=== PATIENT | male | born 1960 | race African-American/Black ===

== ENCOUNTER 2019-03-16 06:25 | Observation (INO) ==
--- NOTE | 2019-03-16 06:37 | Emergency Department Note ---
Disposition Clinical Impression: Angina at rest Disposition: Admitted As Inpatient Time of Disposition: 07:19 General Adult HPI - General Stated complaint: chest pain Time Seen by Provider: 03/16/19 06:26 Source: patient, EMS Mode of arrival: ambulatory Limitations: no limitations Nursing Notes Reviewed: Yes Vital Signs Reviewed: Yes - History of Present Illness HPI Narrative: 58-year-old male with history of hypertension and diabetes presents with chest pain. [facility] She woke up with this morning around 5:30 with constant throbbing pain in left sided chest. No shortness of breath. Patient was given 3 baby aspirin and Nitrostat. Patient reported relief of pain in ED. Patient stated it was his first time having chest pain. No chills and fever. No nausea and vomiting. Onset (ago): hour(s) (1) Location: chest Radiation: non-radiation Pain Severity: moderate Quality: stabbing Consistency: intermittent - Related Data Home Medications Medication Instructions Recorded Confirmed Amlodipine Besylate 10 mg PO DAILY 03/16/19 03/16/19 Ammonium Lactate BID 03/16/19 Atorvastatin Calcium [Lipitor] 40 mg PO DAILY 03/16/19 03/16/19 BuPROPion 300 mg PO DAILY 03/16/19 03/16/19 Chlorthalidone 25 mg PO DAILY 03/16/19 03/16/19 Cholecalciferol (Vitamin D3) 1,000 unit PO DAILY 03/16/19 03/16/19 [Children's Vitamin D3] Docusate 100 mg PO BID 03/16/19 03/16/19 Loratadine [Allergy Relief] 10 mg PO DAILY 03/16/19 03/16/19 Melatonin 3 mg PO DAILY 03/16/19 03/16/19 Metformin HCl [Glucophage] 1,000 mg PO DAILY 03/16/19 03/16/19 Mirtazapine [Remeron] 30 mg PO DAILY 03/16/19 03/16/19 Potassium Chloride 10 meq PO BID 03/16/19 03/16/19 Terbinafine HCl 03/16/19 03/16/19 Allergies Allergy/AdvReac Type Severity Reaction Status Date / Time No Known Allergies Allergy Verified 03/16/19 06:32 Constitutional: Denies: fever, chills Eyes: Denies: eye pain ENT ED: Denies: ear pain Cardiovascular: Reports: chest pain Respiratory: Denies: cough Gastrointestinal: Denies: abdominal pain Genitourinary: Denies: urgency Musculoskeletal: Denies: back pain Integumentary: Denies: rash Neurological: Denies: headache Psychiatric: Denies: anxiety Endocrine: Denies: fatigue Hematological/Lymphatic: Denies: easy bleeding Allergic/Immunologic: Denies: facial swelling Physical Exam - General Limitations: no limitations General appearance: alert - Head Head exam: atraumatic - Eye Eye exam: Present: normal appearance - ENT ENT exam: normal exam - Neck Neck exam: Present: normal inspection - Chest Chest inspection: Present: normal inspection - Respiratory Respiratory exam: Present: normal lung sounds bilaterally. Absent: respiratory distress, wheezes - Cardiovascular Cardiovascular exam: Present: regular rate - Abdominal Exam Abdominal exam: Present: soft - Extremities Exam Extremities exam: Present: normal inspection, full ROM. Absent: tenderness - Back Exam Back exam: Present: normal inspection, full ROM. Absent: tenderness - Neurological Exam Neurological exam: Present: alert, oriented X3 - Psychiatric Psychiatric exam: Present: normal affect - Skin Skin exam: Present: warm, intact Course Vital Signs Temperature 98.5 F 03/16/19 06:32 Pulse Rate 60 03/16/19 06:32 Respiratory Rate 14 03/16/19 06:32 Blood Pressure 155/103 03/16/19 06:32 O2 Sat by Pulse Oximetry 98 03/16/19 06:32 Temperature 98.1 F 03/16/19 14:48 Pulse Rate 58 03/16/19 14:48 Respiratory Rate 16 03/16/19 14:48 Blood Pressure 190/98 03/16/19 14:48 O2 Sat by Pulse Oximetry 98 03/16/19 14:48 Oxygen Delivery Oxygen Delivery Room Air Medical Decision Making - [facility] Narrative Medical decision making narrative: 58-year-old male with history of hypertension and diabetes presents with first time chest pain. Pt stated it was intermittent throbbing pain in left side chest. No shortness of breath. Respond well to ASA and nitrite. Pt never had heart disease. No stress test in the past. Physical exam: unremarkable. EKG: no st-elevation. first dose troponin negative. pt's heart score is 4. Pt will be admit for Angina at rest. Pt is full code status. Dr. Miller has seen the patient and agrees the above plan. - Lab Data Lab results reviewed: Yes I reviewed the patient's lab results. Result diagrams: 03/16/19 06:46 03/16/19 06:46 Lab Results 03/16/19 03/16/19 03/16/19 Range/Units 06:46 06:46 06:46 WBC 6.8 (4.3-11.1) K/mcL RBC 5.25 (4.19-5.50) M/mcL Hgb 15.7 (12.9-16.9) g/dL Hct 44.8 (37.5-50.1) % MCV 85.3 (83.0-100.0) fL MCH 29.9 (28.0-33.3) pg MCHC 35.0 (31.6-35.5) g/dL RDW 12.7 (11.5-14.5) % Plt Count 257 (140-400) K/mcL MPV 8.7 L (9.4-12.4) fL Immature Gran % 0.3 (0-4) % Seg Neutrophils % 59.4 % Lymphocytes % 29.5 % Monocytes % 9.8 % Eosinophils % 0.7 % Basophils % 0.3 % Neutrophils # 4.0 (1.6-8.9) K/mcL Lymphocytes # 2.0 (0.6-4.6) K/mcL Monocytes # 0.7 (0.0-1.3) K/mcL Eosinophils # 0.1 (0.0-0.6) K/mcL Basophils # 0.0 (0.0-0.2) K/mcL PT 12.4 H (9.4-12.1) Seconds INR 1.1 APTT 33.6 (26.0-36.0) Seconds Sodium 135 L (136-145) mEq/L Potassium 3.1 L (3.5-5.1) mEq/L Chloride 99 (98-107) mEq/L Carbon Dioxide 26 (23-29) mEq/L BUN 17 (8-23) mg/dL Creatinine 1.20 (0.70-1.30) mg/dL Est GFR ( Amer) > 60 (> 60) Est GFR (Non-Af Amer) > 60 (> 60) BUN/Creatinine Ratio 14 (6-26) Glucose 125 H (70-105) mg/dL Est Mean Plasma Glucose mg/dl Hemoglobin A1c ( - 5.6) % Calculated Osmolality 283 (280-300) Calcium 9.7 (8.6-10.3) mg/dL Troponin I < 0.03 (< 0.04) ng/mL 03/16/19 Range/Units 06:46 WBC (4.3-11.1) K/mcL RBC (4.19-5.50) M/mcL Hgb (12.9-16.9) g/dL Hct (37.5-50.1) % MCV (83.0-100.0) fL MCH (28.0-33.3) pg MCHC (31.6-35.5) g/dL RDW (11.5-14.5) % Plt Count (140-400) K/mcL MPV (9.4-12.4) fL Immature Gran % (0-4) % Seg Neutrophils % % Lymphocytes % % Monocytes % % Eosinophils % % Basophils % % Neutrophils # (1.6-8.9) K/mcL Lymphocytes # (0.6-4.6) K/mcL Monocytes # (0.0-1.3) K/mcL Eosinophils # (0.0-0.6) K/mcL Basophils # (0.0-0.2) K/mcL PT (9.4-12.1) Seconds INR APTT (26.0-36.0) Seconds Sodium (136-145) mEq/L Potassium (3.5-5.1) mEq/L Chloride (98-107) mEq/L Carbon Dioxide (23-29) mEq/L BUN (8-23) mg/dL Creatinine (0.70-1.30) mg/dL Est GFR ( Amer) (> 60) Est GFR (Non-Af Amer) (> 60) BUN/Creatinine Ratio (6-26) Glucose (70-105) mg/dL Est Mean Plasma Glucose 126 mg/dl Hemoglobin A1c 6.0 H ( - 5.6) % Calculated Osmolality (280-300) Calcium (8.6-10.3) mg/dL Troponin I (< 0.04) ng/mL - Radiology Data Radiology results reviewed: Yes I reviewed the patient's radiology results. HISTORY: ORDERING SYSTEM PROVIDED HISTORY: chest pain Acute. Initial evaluation. FINDINGS: The cardiac silhouette and mediastinal contours are normal. The lungs are clear. No parenchymal lung infiltrate. No pleural effusion. The visualized osseous structures are unremarkable. XR/XR chest 1V portable IMPRESSION: 1. No acute cardiopulmonary disease. D/ / Nahun Lira MD / Nahun Lira MD Interpreting Provider: Nahun Lira MD
[2019-03-16 07:06] LABS: Basophils % 0.3 %; Eosinophils # 0.1 K/mcL (0.0-0.6); Eosinophils % 0.7 %; Hematocrit 44.8 % (37.5-50.1); Hemoglobin 15.7 g/dL (12.9-16.9); Immature Granulocytes % 0.3 % (0-4); Lymphocytes % 29.5 %; Mean Corpuscular Hemoglobin 29.9 pg (28.0-33.3); Mean Corpuscular Volume 85.3 fL (83.0-100.0); Mean Platelet Volume 8.7 fL (9.4-12.4); Monocytes # 0.7 K/mcL (0.0-1.3); Monocytes % 9.8 %; Platelet Count 257 K/mcL (140-400); Red Blood Count 5.25 M/mcL (4.19-5.50); Red Cell Distribution Width 12.7 % (11.5-14.5); Segmented Neutrophils % 59.4 %; White Blood Count 6.8 K/mcL (4.3-11.1)
[2019-03-16 07:13] LABS: INR 1.1; Prothrombin Time 12.4 Seconds (9.4-12.1)
[2019-03-16 07:16] LABS: Activated Partial Thrombo Time 33.6 Seconds (26.0-36.0)
[2019-03-16 07:24] LABS: BUN/Creatinine Ratio 14 (6-26); Blood Urea Nitrogen 17 mg/dL (8-23); Calcium 9.7 mg/dL (8.6-10.3); Carbon Dioxide 26 mEq/L (23-29); Chloride 99 mEq/L (98-107); Glucose 125 mg/dL (70-105); Osmolality,Calculated 283 (280-300); Potassium 3.1 mEq/L (3.5-5.1); Sodium 135 mEq/L (136-145); eGFR For African Americans > 60 (> 60); eGFR For Non-African Americans > 60 (> 60)
[2019-03-16 07:25] LABS: Troponin I < 0.03 ng/mL (< 0.04)
[2019-03-16] MEDS ORDERED: Nitroglycerin 0.4 MG TAB.SUBL SL PRN (07:59)
--- NOTE | 2019-03-16 08:08 | Emergency Department Note ---
Disposition Clinical Impression: Angina at rest Disposition: Admitted As Inpatient Referrals: NONE,PCP [Primary Care Provider] - Time of Disposition: 07:19 General Adult HPI - General Chief complaint: ED Chest Pain Stated complaint: chest pain Time Seen by Provider: 03/16/19 06:26 Source: patient, EMS Mode of arrival: ambulatory Limitations: no limitations - History of Present Illness Location: chest Pain Scale: 8 Quality: stabbing - Related Data Home Medications Medication Instructions Recorded Confirmed Ammonium Lactate BID 03/16/19 Allergies Allergy/AdvReac Type Severity Reaction Status Date / Time No Known Allergies Allergy Verified 03/16/19 06:32 Constitutional: Denies: fever, chills Eyes: Denies: eye pain ENT ED: Denies: ear pain Cardiovascular: Reports: chest pain Respiratory: Denies: cough Gastrointestinal: Denies: abdominal pain Genitourinary: Denies: urgency Musculoskeletal: Denies: back pain Integumentary: Denies: rash Neurological: Denies: headache Psychiatric: Denies: anxiety Endocrine: Denies: fatigue Hematological/Lymphatic: Denies: easy bleeding Allergic/Immunologic: Denies: facial swelling Past Medical History - Past Medical History Medical history: Reports: diabetes, hypertension Psychiatric history: Reports: depression - Social History Smoking Status: Current every day smoker Smokeless Tobacco Status: No Alcohol use: Reports: none Drug use: Reports: marijuana Physical Exam - General Limitations: no limitations General appearance: alert Course Vital Signs Temperature 98.5 F 03/16/19 06:32 Pulse Rate 60 03/16/19 06:32 Respiratory Rate 14 03/16/19 06:32 Blood Pressure 155/103 03/16/19 06:32 O2 Sat by Pulse Oximetry 98 03/16/19 06:32 Temperature 98.5 F 03/16/19 06:32 Pulse Rate 59 03/16/19 07:10 Respiratory Rate 20 03/16/19 07:10 Blood Pressure 150/102 03/16/19 07:10 O2 Sat by Pulse Oximetry 99 03/16/19 07:10 Oxygen Delivery Oxygen Delivery Room Air Medical Decision Making - Lab Data Result diagrams: 03/16/19 06:46 03/16/19 06:46 Lab Results 03/16/19 03/16/19 03/16/19 Range/Units 06:46 06:46 06:46 WBC 6.8 (4.3-11.1) K/mcL RBC 5.25 (4.19-5.50) M/mcL Hgb 15.7 (12.9-16.9) g/dL Hct 44.8 (37.5-50.1) % MCV 85.3 (83.0-100.0) fL MCH 29.9 (28.0-33.3) pg MCHC 35.0 (31.6-35.5) g/dL RDW 12.7 (11.5-14.5) % Plt Count 257 (140-400) K/mcL MPV 8.7 L (9.4-12.4) fL Immature Gran % 0.3 (0-4) % Seg Neutrophils % 59.4 % Lymphocytes % 29.5 % Monocytes % 9.8 % Eosinophils % 0.7 % Basophils % 0.3 % Neutrophils # 4.0 (1.6-8.9) K/mcL Lymphocytes # 2.0 (0.6-4.6) K/mcL Monocytes # 0.7 (0.0-1.3) K/mcL Eosinophils # 0.1 (0.0-0.6) K/mcL Basophils # 0.0 (0.0-0.2) K/mcL PT 12.4 H (9.4-12.1) Seconds INR 1.1 APTT 33.6 (26.0-36.0) Seconds Sodium 135 L (136-145) mEq/L Potassium 3.1 L (3.5-5.1) mEq/L Chloride 99 (98-107) mEq/L Carbon Dioxide 26 (23-29) mEq/L BUN 17 (8-23) mg/dL Creatinine 1.20 (0.70-1.30) mg/dL Est GFR ( Amer) > 60 (> 60) Est GFR (Non-Af Amer) > 60 (> 60) BUN/Creatinine Ratio 14 (6-26) Glucose 125 H (70-105) mg/dL Calculated Osmolality 283 (280-300) Calcium 9.7 (8.6-10.3) mg/dL Troponin I < 0.03 (< 0.04) ng/mL Attestation Statement - Attestation Attestation: For this encounter, I have reviewed the ENGINE PILOT or PA documentation, treatment plan, and medical decision making; and I have had face to face time with this patient. Patient pain free on arrival after administration of aspirin and nitroglycerin, pain starting to come back at the time of my evaluation. EKG repeated and per my interpretation is unchanged from initial tracing. First troponin negative. Patient accepted by the hospitalist for admission and further evaluation.
[2019-03-16] MEDS ORDERED: Naloxone 0.4 MG/ML INJ IVP PRN (09:15)
[2019-03-16] MEDS ORDERED: Ondansetron 4 MG/2 ML VIAL IVP PRN (09:15)
--- NOTE | 2019-03-16 11:44 | Internal Med History&Physical ---
Date of Encounter: 03/16/19 Time of Encounter: 07:00 Internal Medicine - H&P: HPI Chief complaint: CP History of present illness: 58-year-old male with history of hypertension and diabetes presents with chest pain That wake him up from sleep, the patient describes the pain as constant throbbing pain in the left side of his chest was no radiation no alleviating factors or aggravating factors. He denied diaphoresis, shortness of breath, orthopnea, or limitation, Dr. Deborah Dale nocturnal dyspnea, progressive worsening of lower extremity edema, the patient was treated with aspirin and nitroglycerin and reported that he is pain significantly improved, the patient was evaluated by the ER staff and achy EKGs shows no significant ST-T wave changes, his cardiac enzyme first set was within normal limit. Past Med Surg Social Fam HX - Past Medical History Medical history: diabetes, hypertension Psychiatric history: depression - Social History Smoking Status: Current every day smoker Smokeless Tobacco Status: No Alcohol use: none Drug use: marijuana Internal Medicine - H&P: Meds Amlodipine Besylate 10 mg PO DAILY 03/16/19 [History] Ammonium Lactate [Amlactin] 1 appl TP BID PRN 03/16/19 [History] Atorvastatin Calcium [Lipitor] 20 mg PO DAILY 03/16/19 [History] Bupropion HCl [Wellbutrin Xl] 300 mg PO DAILY 03/16/19 [History] Chlorthalidone 25 mg PO DAILY 03/16/19 [History] Cholecalciferol (Vitamin D3) [Children's Vitamin D3] 1,000 unit PO DAILY 03/16/19 [History] Diclofenac Sodium [Voltaren] 2 gm TP DAILY PRN MDD 16 gm daily 03/16/19 [History] Docusate [Colace] 100 mg PO BID PRN 03/16/19 [History] Loratadine [Allergy Relief] 10 mg PO DAILY 03/16/19 [History] Melatonin 3 mg PO HS 03/16/19 [History] Metformin HCl [Glucophage] 1,000 mg PO QAM 03/16/19 [History] Metformin HCl [Glucophage] 500 mg PO QPM 03/16/19 [History] Multivitamin [One Daily Multivitamin] 1 tab PO DAILY 03/16/19 [History] Potassium Chloride [K-Tab ER] 20 meq PO BID 03/16/19 [History] Terbinafine HCl [Lamisil At] 1 appl TP BID 03/16/19 [History] cloNIDine HCl [CloNIDine HCl] 0.2 mg PO BID PRN 03/16/19 [History] Aspirin Enteric Coated [Aspirin EC] 81 mg PO DAILY #30 tablet. 03/18/19 [Rx] Lisinopril [Zestril] 10 mg PO DAILY #30 tablet 03/18/19 [Rx] Allergy/AdvReac Type Severity Reaction Status Date / Time No Known Allergies Allergy Verified 03/16/19 06:32 All Systems PM: A 10-system review of systems was performed and is negative for pertinent findings except as documented above in the HPI. - Constitutional Vitals: Temp Pulse Resp BP Pulse Ox 97.8 F 59 17 159/100 98 03/16/19 10:10 03/16/19 10:10 03/16/19 10:10 03/16/19 10:10 03/16/19 10:10 General appearance: Present: A&O X 3 Exam: ` - Neck Neck exam general surgery: Present: supple, trachea midline. Absent: lymphadenopathy - Respiratory Respiratory exam: Present: CTAB. Absent: accessory muscle use, rales, rhonchi, wheezes - Cardiovascular Cardiovascular exam: Present: RRR, +S1, +S2. Absent: diastolic murmur, gallop, rubs, systolic murmur - GI/Abdominal GI/Abdominal exam: Present: normal bowel sounds, soft, no peritoneal signs. Absent: distended, tenderness - Extremities Exam Extremities exam: Present: warm, radial pulses palpable and symmetrical. Absent: calf tenderness, cyanotic, pedal edema Internal Med - H&P Results - Labs CBC & Chem 7: 03/17/19 11:41 03/17/19 11:41 Labs: Short CBC 03/16/19 Range/Units 06:46 WBC 6.8 (4.3-11.1) K/mcL Hgb 15.7 (12.9-16.9) g/dL Hct 44.8 (37.5-50.1) % Plt Count 257 (140-400) K/mcL Neutrophils # 4.0 (1.6-8.9) K/mcL BMP 03/16/19 06:46 Sodium 135 L Potassium 3.1 L Chloride 99 Carbon Dioxide 26 BUN 17 Creatinine 1.20 Glucose 125 H Calcium 9.7 Cardiac Enzymes 03/16/19 03/16/19 Range/Units 06:46 10:11 Troponin I < 0.03 < 0.03 (< 0.04) ng/mL - Impressions ITS Impressions Chest X-Ray 03/16/19 06:26 IMPRESSION: 1. No acute cardiopulmonary disease. D/ / Nahun Lira MD / Nahun Lira MD Interpreting Provider: Nahun Lira MD - Assessment and Plan (1) Angina at rest Status: Acute Assessment and plan: Chest pain r/o CAD DD *Muskuloskeletal CP - myofascial strain, costochondritis *GERD *Esophageal spasm *Pericarditis - unlikely *Pneumonia - no infiltrate on CXR PLAN: - cardiac enzymes x 2 q 8 hr - EKG now and in AM - ASA - O2 by NC to keep SpO2 greater than 92% - UA - CBCD, BMP in AM - Fasting lipids - Morphine 2 mg IV q 2-4 hr PRN chest pain - Tylenol 650 mg PO q 4-6 hr PRN headache - 2D Echo - (2) Diabetes Status: Acute Assessment and plan: We will start the patient and insulin sliding scale with coverage, and obtain hemoglobin A1c Qualifiers: Diabetes mellitus type: type 2 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
[2019-03-16] MEDS ORDERED: *HR* Dextrose 50 % in Water (Vial) 50 ML VIAL IVP PRN (13:02)
[2019-03-16] MEDS ORDERED: D5% in Water 1,000 ML IVC PRN (13:02)
[2019-03-16] MEDS ORDERED: Dextrose Gel 15 GM/37.5 ML TUBE PO PRN ×2 (13:02)
[2019-03-16 13:53] LABS: Estimated Average Glucose 126 mg/dl
--- NOTE | 2019-03-16 16:58 | Electrocardiograph Report ---
[place] [id number] Test Date: 2019-03-16 Pat Name: Babak Simms Department: EXAM23 Room: 3B14 Gender: M Last Inserter: : 1960 Requested By: Pinky Ace Order Number: [id number] Reading MD: Eren Hughes Measurements Intervals [place] Rate: 59 P: -23 [place]: 185 QRS: 38 QRSD: 115 T: 71 QT: 470 QTc: 466 Interpretive Statements Sinus rhythm Nonspecific intraventricular conduction delay Electronically Signed On 03-16-2019 16:56:33 EDT by Eren Hughes
--- NOTE | 2019-03-16 16:58 | Electrocardiograph Report ---
[place] [id number] Test Date: 2019-03-16 Pat Name: Babak Simms Department: EXAM23 Room: 3B14 Gender: M Medical Associate: : 1960 Requested By: Eddie Silva Order Number: [id number] Reading MD: Eren Hughes Measurements Intervals [place] Rate: 56 P: 45 IN: 183 QRS: 45 QRSD: 109 T: 96 QT: 451 QTc: 436 Interpretive Statements Sinus rhythm Abnormal R-wave progression, early transition Nonspecific T abnormalities, lateral leads Electronically Signed On 03-16-2019 16:57:04 EDT by Eren Hughes
[2019-03-16] MEDS ORDERED: Diclofenac Sodium [Voltaren] GEL TP PRN (18:04)
[2019-03-16] MEDS: cloNIDine HCl 0.1 MG TABLET PO PRN (18:48)
[2019-03-16] MEDS: Insulin LISPRO 300 UNITS/3 ML VIAL SQ SCH ×2 (18:49→20:57)
[2019-03-16] MEDS: Clotrimazole 1% CRM 15 GM TUBE TP SCH (20:13)
[2019-03-16] MEDS: Ammonium Lactate 30 APPL/225 GM BOTTLE TP PRN (20:16)
[2019-03-16] MEDS ORDERED: Perflutren Lipid Microsphere 1.3 ML in 0.9 % Sodium Chloride 8.7 ML IVP ONE (21:16)
[2019-03-16] MEDS: Melatonin 3 MG TABLET PO SCH (22:08)
[2019-03-16] MEDS: Mirtazapine 15 MG TABLET PO SCH (22:08)
[2019-03-16 23:27] LABS: BUN/Creatinine Ratio 13 (6-26); Blood Urea Nitrogen 15 mg/dL (8-23); Calcium 9.2 mg/dL (8.6-10.3); Carbon Dioxide 27 mEq/L (23-29); Chloride 101 mEq/L (98-107); Glucose 116 mg/dL (70-105); Osmolality,Calculated 286 (280-300); Potassium 3.2 mEq/L (3.5-5.1); Sodium 137 mEq/L (136-145); eGFR For African Americans > 60 (> 60); eGFR For Non-African Americans > 60 (> 60)
[2019-03-17] MEDS ORDERED: Regadenoson 0.4 MG/5 ML SYRINGE IVP ONE (06:54)
[2019-03-17] MEDS: Insulin LISPRO 300 UNITS/3 ML VIAL SQ SCH ×4 (08:40→20:31)
[2019-03-17] MEDS: BuPROPion XL (24 HR) 150 MG TABLET PO SCH (08:45)
[2019-03-17] MEDS: Multivit/Ca/Min/Fe/FA 1 TAB TABLET PO SCH (08:45)
[2019-03-17] MEDS: Cholecalciferol (D-3) 1,000 UNIT TABLET PO SCH (08:45)
[2019-03-17] MEDS: amLODIPine 5 MG TABLET PO SCH (08:45)
[2019-03-17] MEDS: Loratadine 10 MG TABLET PO SCH (08:45)
[2019-03-17] MEDS: Clotrimazole 1% CRM 15 GM TUBE TP SCH ×2 (08:51→20:33)
[2019-03-17] MEDS ORDERED: Mirtazapine 15 MG TABLET PO SCH (09:00)
[2019-03-17] MEDS ORDERED: Aspirin 325 MG TABLET PO SCH (09:00)
--- NOTE | 2019-03-17 11:48 | Cardiology Consult Note ---
Date of Encounter: 03/17/19 Time of Encounter: 11:46 Assessment and Plan (1) Unstable angina Current Visit: Yes Status: Acute Unstable angina with abnormal stress test/new onset cardiomyopathy. Risks benefits and alternatives of a LHC were discussed with the patient and he agrees to proceed Discussion w patient/family: The assessment and plan as outlined above was discussed with the patient and/or family members who expressed understanding and agreement. All questions were answered. Thank you for involving us in the care of your patient. Please call with any questions. History of Present Illness Consult date: 03/17/19 Consult reason: Unstable angina Chief complaint: Chest pain History of present illness: Mr. Simms is a 58 year old male with multiple cardiac risk factors including diabetes, hypertension, hyperlipidemia presents with chest pain. Patient describes chest pain started approximately 3 days ago and has been ongoing with increased frequency and duration of chest pain. EKG shows nonspecific changes and stress of shows mild inferior ischemia with a low ejection fraction of 35%. Risks benefits and alternatives of and LHC were discussed patient and he agrees to proceed. Past Med Surg Social Fam HX - Past Medical History Medical history: diabetes, hypertension Psychiatric history: depression - Social History Smoking Status: Current every day smoker Smokeless Tobacco Status: No Alcohol use: none Drug use: marijuana Medications and Allergies Amlodipine Besylate 10 mg PO DAILY 03/16/19 [History] Ammonium Lactate [Amlactin] 1 appl TP BID PRN 03/16/19 [History] Atorvastatin Calcium [Lipitor] 20 mg PO DAILY 03/16/19 [History] Bupropion HCl [Wellbutrin Xl] 300 mg PO DAILY 03/16/19 [History] Chlorthalidone 25 mg PO DAILY 03/16/19 [History] Cholecalciferol (Vitamin D3) [Children's Vitamin D3] 1,000 unit PO DAILY 03/16/19 [History] Diclofenac Sodium [Voltaren] 2 gm TP DAILY PRN MDD 16 gm daily 03/16/19 [History] Docusate [Colace] 100 mg PO BID PRN 03/16/19 [History] Loratadine [Allergy Relief] 10 mg PO DAILY 03/16/19 [History] Melatonin 3 mg PO HS 03/16/19 [History] Metformin HCl [Glucophage] 1,000 mg PO QAM 03/16/19 [History] Metformin HCl [Glucophage] 500 mg PO QPM 03/16/19 [History] Multivitamin [One Daily Multivitamin] 1 tab PO DAILY 03/16/19 [History] Potassium Chloride [K-Tab ER] 20 meq PO BID 03/16/19 [History] Terbinafine HCl [Lamisil At] 1 appl TP BID 03/16/19 [History] cloNIDine HCl [CloNIDine HCl] 0.2 mg PO BID PRN 03/16/19 [History] Allergy/AdvReac Type Severity Reaction Status Date / Time No Known Allergies Allergy Verified 03/16/19 06:32 All Systems Review: The remainder of the systems were reviewed and are negative Physical Examination Vital Signs, Last 4 Hours Temp Pulse Resp BP Pulse Ox 03/17/19 08:37 98.1 F 56 18 158/95 94 General: Conversant, No Apparent Distress HEENT: Atraumatic, Normocephaly, Mucus Membranes Moist Neck: No JVD, Normal carotid pulses Cardiac: Reg Rate and Rhythm, Normal S1 and S2, No Murmur Lungs: Normal Breath Sounds, No Wheeze, Rales, Rhonchi Neuro: Alert and responsive, No focal deficits noted Abdomen: Soft, Non-Tender Skin: No rashes noted on visualized skin Musculoskeletal: No Chest Wall Tenderness Extremities: No Clubbing, No Cyanosis, No Edema, Normal Pulses Results 03/16/19 06:46 03/16/19 21:42 Lab Results 03/16/19 03/16/19 03/16/19 15:52 21:42 21:42 Sodium 137 Potassium 3.2 L Chloride 101 Carbon Dioxide 27 BUN 15 Creatinine 1.16 Glucose 116 H Calcium 9.2 Troponin I < 0.03 < 0.03 Consult Discharge Plan - Plan [facility]errals: [facility] [Non-Partnered Physician] - 04/06/19 1:30 pm
[2019-03-17 11:56] LABS: Basophils % 0.4 %; Eosinophils % 0.4 %; Hematocrit 44.6 % (37.5-50.1); Hemoglobin 15.4 g/dL (12.9-16.9); Immature Granulocytes % 0.3 % (0-4); Lymphocytes # 1.5 K/mcL (0.6-4.6); Lymphocytes % 20.4 %; Mean Corpuscular HGB Conc 34.5 g/dL (31.6-35.5); Mean Corpuscular Hemoglobin 30.2 pg (28.0-33.3); Mean Corpuscular Volume 87.5 fL (83.0-100.0); Mean Platelet Volume 9.1 fL (9.4-12.4); Monocytes # 0.7 K/mcL (0.0-1.3); Monocytes % 9.3 %; Neutrophils # 5.1 K/mcL (1.6-8.9); Platelet Count 221 K/mcL (140-400); Red Cell Distribution Width 12.8 % (11.5-14.5); Segmented Neutrophils % 69.2 %; White Blood Count 7.4 K/mcL (4.3-11.1)
--- NOTE | 2019-03-17 11:58 | Internal Med Progress Note ---
Hospitalist Progress Note - Encounter Date of Encounter: 03/17/19 Time of Encounter: 11:55 - Subjective Interval History: Mr. Simms is a 58-year-old male with history of hypertension, HLD, diabetes and chronic tobacco dependence pt presented to ER with chest pain. He described the pain as constant throbbing pain in the left side of his chest was no radiation no alleviating factors or aggravating factors. He denied diaphoresis, shortness of breath, orthopnea, or limitation. In the ER the patient was treated with aspirin and nitroglycerin and reported that he is pain significantly improved. He was admitted in the hospital and placed him on pvc monitor. His his serial troponin came back as negative. Patient is still complaining about chest pain 5 out of 10 at resting. He did go for nuclear stress test which came back as abnormal. - Exam Vitals: Temp Pulse Resp BP Pulse Ox 98.1 F 56 18 158/95 94 03/17/19 08:37 03/17/19 08:37 03/17/19 08:37 03/17/19 08:37 03/17/19 08:37 Exam: Gen: Alert, awake, Oriented to time,place and person Chest: Diminished breath sounds B/L, No wheezing, No crackles, No rales Heart: S1S2+ RRR No murmurs Abd: Soft, NT, BS +, No organomegaly Ext: No edema, pulses are palpable, No calf tenderness Neuro : No acute focal neuro deficits noticed Skin: No rash. - Assessment and Plan (1) Unstable angina Current Visit: Yes Status: Acute Assessment and Plan: His CP seems to be typical angina equivalent his his serial troponin were negative His stress test came back as abnormal with Small sized, mild intensity, reversible inferior perfusion defect possibly due to ischemia His LVEF @ 36 % Cont ASA, Lipitor If HR allows will consider adding BB 2 D Echo ordered Card consulted Possible LHC later today if his CP persists, will start him on Nitro gtt for now will give him Nitro SL PRN (2) Abnormal stress test Current Visit: Yes Status: Acute Assessment and Plan: as above (3) Cardiomyopathy Current Visit: Yes Status: Acute Assessment and Plan: Could be ischemic no previous Echo's to review ordered 2 D Echo (4) Diabetes Current Visit: Yes Status: Acute Assessment and Plan: ADA diet on ISS HbA1C 6.0 (5) Hypertension Current Visit: Yes Status: Acute Assessment and Plan: Fairly controlled with home medications started on IV hydralazine as needed (6) Tobacco dependence Current Visit: Yes Status: Acute Assessment and Plan: Counseled to quit smoking - Time Spent with Patient Total time spent is greater than 50% in coordination of care (as documented) at patient's floor/unit and/or counseling patient: Internal Medicine: Result - Labs CBC & Chem 7: 03/16/19 06:46 03/16/19 21:42 Labs: BMP 03/16/19 21:42 Sodium 137 Potassium 3.2 L Chloride 101 Carbon Dioxide 27 BUN 15 Creatinine 1.16 Glucose 116 H Calcium 9.2 Cardiac Enzymes 03/16/19 03/16/19 Range/Units 15:52 21:42 Troponin I < 0.03 < 0.03 (< 0.04) ng/mL - ABG Interpretation ABG results: PT/INR, D-dimer PT 12.4 Seconds (9.4-12.1) H 03/16/19 06:46 - Impressions Impressions Echocardiogram 03/16/19 18:22 Impressions: LVEF 45%. Normal LV chamber size, wall thickness. Mild global left ventricular systolic dysfunction. Mild left ventricular diastolic dysfunction. Normal right ventricular structure and function. No evidence of pulmonary hypertension. No significant valvular dysfunction. Left Ventricular Wall Motion: Rest Echo Findings The apex, apical inferior, mid inferior, basal inferior, apical anterior, mid anterior, basal anterior, apical septal, mid inferior septal, basal inferior septal, apical lateral, mid anterior lateral, basal anterior lateral, mid anterior septal, mid inferior lateral, basal anterior septal and basal inferior lateral hyde were hypokinetic. Findings: Study Quality * Technically adequate exam. ECG Findings * Sinus bradycardia. Left Ventricle * LVEF 45%. * Normal LV chamber size, wall thickness. * Mild global left ventricular systolic dysfunction. * Mild left ventricular diastolic dysfunction. Right Ventricle * Normal right ventricular structure and function. Left Atrium * Mildly dilated left atrium. Right Atrium * Mildly dilated right atrium. Interatrial Septum * Interatrial septum not well evaluated. Aortic Valve * Trileaflet aortic valve with normal function. * No aortic regurgitation. * No aortic stenosis. Mitral Valve * Normal mitral valve structure and function. * No mitral stenosis. * Trace mitral regurgitation. Tricuspid Valve * Normal tricuspid valve structure and function. * Trace tricuspid regurgitation. * No evidence of pulmonary hypertension. Pulmonic Valve * Normal pulmonic valve structure. * Mild pulmonic regurgitation. Aorta * Normally sized aortic root. Pericardium * The pericardium appears normal. IVC * Normal IVC dimensions and inspiratory collapse. Pulmonary Artery * Normal visualized portions of the main pulmonary artery. Consult Discharge Plan - Plan Referrals: HIRAL,PCP [Non-Partnered Physician] - 04/06/19 1:30 pm
[2019-03-17 12:10] LABS: INR 1.1; Prothrombin Time 12.6 Seconds (9.4-12.1)
[2019-03-17 12:13] LABS: Activated Partial Thrombo Time 30.7 Seconds (26.0-36.0)
[2019-03-17 12:15] LABS: Alanine Aminotransferase 11 Units/L (7-52); Albumin 4.3 g/dL (3.5-5.7); Albumin/Globulin Ratio 1.3 (1.1-2.2); Alkaline Phosphatase 63 Units/L (34-104); Aspartate Amino Transferase 13 Units/L (13-39); BUN/Creatinine Ratio 14 (6-26); Bilirubin,Total 0.5 mg/dL (0.3-1.0); Blood Urea Nitrogen 17 mg/dL (8-23); Calcium 9.3 mg/dL (8.6-10.3); Carbon Dioxide 26 mEq/L (23-29); Chloride 103 mEq/L (98-107); Chol/HDL Ratio 3.1 (0-4.9); Cholesterol 129 mg/dL (< 200); Globulin 3.2 g/dL (2.4-3.5); Glucose 108 mg/dL (70-105); HDL Cholesterol 41 mg/dL (40-59); LDL Cholesterol,Calculated 74 mg/dL (0-99); Magnesium 2.4 mg/dL (1.6-2.6); Osmolality,Calculated 284 (280-300); Phosphorous 3.1 mg/dL (2.7-4.5); Potassium 3.5 mEq/L (3.5-5.1); Sodium 136 mEq/L (136-145); Total Protein 7.5 g/dL (6.4-8.9); Triglycerides 68 mg/dL (< 150); eGFR For African Americans > 60 (> 60); eGFR For Non-African Americans > 60 (> 60)
[2019-03-17] MEDS: cloNIDine HCl 0.1 MG TABLET PO PRN (20:33)
[2019-03-17] MEDS: Melatonin 3 MG TABLET PO SCH (20:33)
[2019-03-17] MEDS: Mirtazapine 15 MG TABLET PO SCH (20:33)
[2019-03-17] MEDS: Ammonium Lactate 30 APPL/225 GM BOTTLE TP PRN (20:34)
[2019-03-17] MEDS ORDERED: Melatonin 3 MG TABLET PO SCH (21:00)
[2019-03-18] MEDS: Insulin LISPRO 300 UNITS/3 ML VIAL SQ SCH (06:56)
[2019-03-18] MEDS ORDERED: *HR* Heparin 10,000 UNIT/10 ML VIAL ONE (07:12)
[2019-03-18] MEDS ORDERED: Heparin 1,000 UNITS/500 mL 500 ML ONE (07:12)
[2019-03-18] MEDS ORDERED: Nitroglycerin 1,000 MCG/10 ML VIAL IV ONE (07:12)
[2019-03-18] MEDS ORDERED: ISOVUE-370 200 ML INFUS..BTL ONE (07:12)
[2019-03-18] MEDS ORDERED: 0.9 % Sodium Chloride 1,000 ML ONE (07:12)
[2019-03-18] MEDS ORDERED: Verapamil 5 MG/2 ML VIAL ONE (07:59)
[2019-03-18] MEDS ORDERED: *HR* Midazolam HCl 2 MG/2 ML VIAL ONE (08:00)
--- NOTE | 2019-03-18 08:28 | Pre-Sedation Evaluation ---
Pre-sedation evaluation - Pre-sedation checklist Date of procedure: 03/18/19 Procedure: left heart cath Recent Vitals: Last Vital Signs Temp 97.5 F L 03/18/19 06:50 Pulse 59 03/18/19 06:50 Resp 16 03/18/19 06:50 BP 167/98 03/18/19 06:50 Pulse Ox 95 03/18/19 06:50 H&P (including ROS) documented in medical record: Yes Previous reaction to sedatives/anesthetics: No Dietary Status: NPO after Midnight Airway Assessment: Patient can open mouth completely, TMJ function normal Dentition: No loose teeth or bridges Possible difficult airway: No ASA Classification *see protocol: CLASS II-Mild systemic disease Plan of Care: Pt appropriate candidate for procedure/moderate/conscious sedation Cardiac Registry (Cardio Only) - Functional Capacity Functional Capacity: >=4 METS with symptoms - Clincal Frailty Scale Clinical Frailty Scale: Well
--- NOTE | 2019-03-18 08:29 | Event Note ---
Date of Encounter: 03/18/19 Time of Encounter: 08:29 - Cardiology Event Note Cath completed LVEF 60-65% + LVH rca normal and dominant lca normal recommend non cardiac work up htn medications risk factor control
--- NOTE | 2019-03-18 08:46 | Invasive Diagnostic Lab Proc ---
Name: Babak Simms Date of Study: 03/18/2019 Date: 1960 Ht: 70.9in Medical Record#: [id number] Age: 58 Wt: 216.05lb Gender: Male BSA: 2.18 Order #: [id number] BMI: 30.25 Physicians Procedure Physician: Arya Rowland MD Referring MD: Referring MD: Staff Name Position Time In [place] RT (R) Scrub orientee 07:58 AM [facility] RT (R) Scrub 07:59 AM Jose David Dwyer RN Monitor 07:59 AM Derrek Lucas RN Lime Plant Operator 07:59 AM Procedures Performed Procedure L HRT ARTERY/VENTRICLE ANGIO Pre-Procedure Checklist Informed consent is complete signed and on chart. H&P is on chart. ID band is on and ID verified with patient. Patient NPO for procedure The procedure was described for the patient and questions were answered. Blood Pressure: 147/91 ECG is on chart. Rhythm: NSR Plan of Care Patient will tolerate the procedure without complications. Adequate level of comfort will be maintained. Hemodynamics will remain stable Patient will recover from procedure without complications. Respiratory function will be maintained. Cardiac rhythm will remain stable. Patient temperature will be maintained. Patient and/or family have verbalized understanding of the procedure. Patient Education Chief Complaint/Reason for Test: Cardiac Cath Developmental Category: Adult (18-64 years) Developmentally Appropriate for Age: Yes Learning Barriers: None Education Needs: Procedure Education Method: Verbal Information Taught: Cardiac Cath Educational Evaluation: Able to repeat information Intravenous Access Time IV Size Location DC'd Fluid/Drip Rate Units RN 20g 1 10/15" Patent On Arrival Lt Arm 0.9NaCl mg/hr Derrek Lucas RN Allergies No Known Allergies Vital Signs Time BP (mmHg) HR (bpm) O2 Sat. RR (bpm) LOC 08:00 AM / % 5 = Fully awake and oriented or at pre-proc level 08:00 AM / % 4 = Oriented but drowsy 08:02 AM 183 / 105 60 99 % 17 08:06 AM 167 / 103 57 97 % 28 08:11 AM 160 / 100 57 95 % 55 08:16 AM 136 / 80 72 93 % 23 08:21 AM 147 / 81 61 94 % 29 Procedural Medications Time Medication Dose Units Method Given By 08:04 AM Oxygen 2 L/min nasal cannula Derrek Lucas RN 08:05 AM Versed 2 mg Intravenous Derrek Lucas RN 08:11 AM Lidocaine 2% 2 ml Subcutaneous Arya Rowland MD 08:13 AM Heparin 4000 units Nitroglycerin 200 mcg Verapamil 2.5 mg Intraarterial Arya Rowland MD ASA Classification: CLASS II- Mild systemic disease (i.e. well-controlled diabetes, hypertension, asthma, cigarette smoking) Reena Score Preprocedure Postprocedure Activity 2- Moves 4 extremities sustained head lift Activity 2- Moves 4 extremities sustained head lift Circulation 2- SBP +/= 20 points of pre-anesthetic level Circulation 2- SBP +/= 20 points of pre-anesthetic level Consciousness 2- Awake and alert oriented x 3 Consciousness 2- Awake and alert oriented x 3 O2 Saturation 2- Able to maintain O2 satruation of 92% on room air O2 Saturation 2- Able to maintain O2 satruation of 92% on room air Respiratory 2- Able to deep breathe and cough well Respiratory 2- Able to deep breathe and cough well Total Score 10 Total Score 10 Contrast Agent: Isovue Diagnostic Contrast: 75 ml Total Contrast: 75 ml Fluoro Dose: 17 mGy Procedure Log Time Note Enter By 07:57 AM CathStat 07:58 AM Pt arrived to tender labor 2 at 07:58 [facility] 07:59 AM Taylor Borden RT (R) Position: Scrub orientee Time in: 07:58 [facility] 07:59 AM Anyi Forman RT (R) Position: Scrub [facility]: 07:59 [facility] 07:59 AM Jose David Dwyer RN Position: Monitor Time in: :59 [facility] 07:59 AM Derrek Lucas RN Position: Lime Plant Operator Time in: 07:59 [facility] 08:00 AM Patient charges- Angio tray pack, Navilyst 3mm J, Pulse Oximetry and ACIST tubing and transducer [facility] 08:00 AM Physician arrived 08:00 [facility] 08:00 AM Bertha completed [facility] 08:00 AM Sign in performed according to hospital policy. Informed consent was obtained. [email or web address] 08:00 AM Procedure start 08:00 [email or web address] 08:00 AM Time: 08:00 Patient comfortable and pain free: Yes [email or web address] 08:00 AM Time: 08:00LOC: 5 = Fully awake and oriented or at pre-proc level [email or web address] 08:00 AM Vitals capture started with the following parameters, Patient=Adult, Interval=5 min, Initial Xhxelyub=342 mmHg, Deflation Rate=5 mmHg, Cuff placed on Left Arm 08:01 AM Hair removed from procedure site in procedure lab using clippers. Right wrist and Right groin prepped with Chloraprep by Taylor Borden (Juan Luis), then patient was draped. Skin intact. [email or web address] 08:02 AM HR=60 bpm, BNOY=877/105 mmhg, SpO2=99.0 %, Resp=17 B/min, Comment=nsr 08:04 AM Time: 08:04 Oxygen on at 2 L/min per nasal cannula by Derrek Lucas RN [facility] 08:05 AM Time: 08:05 Versed 2 mg Intravenous Given by Derrek Lucas RN [facility] 08:06 AM HR=57 bpm, RHXV=895/103 mmhg, SpO2=97.0 %, Resp=28 B/min, Comment=sb 08:07 AM ASA Class CLASS II- Mild systemic disease (i.e. well-controlled diabetes, hypertension, asthma, cigarette smoking) jcallan 08:11 AM Time out was performed according to hospital policy. Conscious sedation and anesthesia was achieved (see medication log with in this report above) [email or web address] 08:11 AM HR=57 bpm, RIUK=441/100 mmhg, SpO2=95.0 %, Resp=55 B/min, Comment=sb 08:11 AM Time: 08:11 2 ml Lidocaine 2% to right radial Subcutaneous Given by Arya Rowland MD [facility] 08:12 AM Access obtained by percutaneous puncture. 5Fr 10cm Terumo Glidesheath sheath placed in right Radial artery. [id number] jcallan 08:13 AM Time: 08:13 Patient given 4,000 units Heparin, 200 mcg Nitroglycerin, and 2.5 mg Verapamil Intraarterial by Arya Rowland MD. This is given to reduce risk of vessel spasm and thrombosis. [email or web address] 08:13 AM Pressure channel 2 zeroed. 08:14 AM Pressure channel 2 zeroed. 08:15 AM Recorded Pressure: Ao, HR=66, Condition=Condition 1 (Aorta) Ao 122/86/103 08:15 AM Time: 08:00 Patient comfortable and pain free: Yes [email or web address] 08:15 AM Time: 08:00LOC: 4 = Oriented but drowsy [email or web address] 08:16 AM 5Fr FL3.5 catheter inserted over the wire [id number] jcallihan 08:16 AM LCA angiography performed in multiple views. [email or web address] 08:16 AM HR=72 bpm, EZLP=276/80 mmhg, SpO2=93.0 %, Resp=23 B/min, Comment=nsr 08:17 AM Catheter removed [email or web address] 08:17 AM 5Fr FR 4 catheter inserted over the wire DN jcallihan 08:18 AM RCA angiography performed in multiple views. [email or web address] 08:19 AM Catheter removed jcallihan 08:19 AM 5Fr Pigtail catheter inserted over the wire DN jcallihan 08:20 AM Recorded Pressure: LV, HR=69, Condition=Condition 1 (Left Ventricle) LV 126/9/10 08:20 AM Recorded Pressure: LV, HR=61, Condition=Condition 1 (Left Ventricle) LV 130/6/10 08:21 AM Catheter crossed the aortic valve and was selectively placed in the left ventricle. Pressures recorded on pullback for left heart catheterization. [email or web address] 08:21 AM Recorded Pressure: LV, Ao, HR=61, Condition=Condition 1 (Left Ventricle) LV 133/6/13, (Aorta) Ao 136/84/109 08:21 AM HR=61 bpm, YUTV=121/81 mmhg, SpO2=94.0 %, Resp=29 B/min, Comment=nsr 08:22 AM Lv gram completed by hand injection. 10 ml contrast. [email or web address] 08:22 AM Catheter removed jcallihan 08:22 AM Wire removed jcallihan 08:23 AM Procedure completed at 08:23 03/18/2019 [email or web address] 08:23 AM Sign out completed: Radiation Dose 145.63 mGy, 16.8 Gy/cm2 Fluoro Time: 1.6 Isovue 370 - 200ml contrast 75 ml given by Arya Rowland MD. Complications: None. The patient was discharged out of the physical laboratory assistant in stable condition. Sedation minutes 18. Cardiac Rehab Consult needed: No. Confirmed administered medications: Yes [email or web address] 08:26 AM Did you address MEL flow and Dominance? YesCoronary Dominance: right [email or web address] 08:26 AM Isovue 370 - 200ml,1 Bottle(s) used. [email or web address] 08:27 AM Arterial sheath pulled, Vasc Band closure device used and was Successful S/N. jcallihan 08:27 AM 7 ml air in Vasc Band. [email or web address] 08:27 AM Estimated Blood Loss: less than 20cc [email or web address] 08:27 AM Post ECG NSR jcallihan 08:28 AM Post Blood Pressure 136/80 [email or web address] 08:28 AM 08:28 Post Pulses Bilateral DP 1+ [email or web address] 08:28 AM 08:28 Post Pulses Bilateral radial 2+ [email or web address] 08:28 AM Information taught Cardiac Cath and Vasc Band jcallihan 08:28 AM Education needs Procedure, Plan of Care, and Responsibilities of Patient in Care [email or web address] 08:28 AM Learning barriers :None jcallihan 08:32 AM Education Methods Verbal [facility] 08:32 AM Education evaluation Able to repeat information jcallan 08:32 AM Site status No bleeding/hematoma - Rt Wrist as reported by Sites, Anyi RT (R) at 08:32 jcallihan 08:32 AM Report given to 3B RN Pt taken to 3B Room #14. 08:32 jcallihan 08:32 AM Plavix, Effient or Brilinta given No jcallihan 08:32 AM Patient out of room: 08:32 jcallihan 08:32 AM No family present at this time. [email or web address] 08:33 AM Complications: None [email or web address] Complications Complication None None Hemodynamics Pressures Site Systolic/A Wave Diastolic/V Wave Mean AO 122 86 103 LV 126 9 10 LV 130 6 10 LV 133 6 13 AO 136 84 109 Post Procedure Information Blood Pressure: 136/80 mmHg Rhythm: NSR Post procedural instructions were given Closure Device Time Device Success/Fail Mechanical Compression Successful Site Checks Time Location Status Staff Sheath In? Note 08:32 AM Rt Wrist No bleeding/hematoma Sites, Anyi RT (R) Pulses Time Site Pre-Procedure Post-Procedure Note Bilateral DP & PT 1+ Bilateral radial 2+ 8:28:00 AM Bilateral DP 1+ 8:28:00 AM Bilateral radial 2+ Updated by Jose David Dwyer RN on 03/18/2019 8:41:36 AM electronically signed on 03/18/2019 8:41:59 AM with status of Final
[2019-03-18] MEDS ORDERED: Aspirin Enteric Coated 81 MG Tablet PO SCH (09:00)
--- NOTE | 2019-03-18 09:08 | Discharge Summary ---
- NOTES TO OUTPATIENT PROVIDER Notes to Outpatient Provider: f/u with PCP in one week. Orders not resulted at time of discharge: Pending orders 03/16/19 19:16 NM giacomo perf SPECT multi [NM] Routine 03/17/19 06:00 ECG 12 lead ECG [ECG] AM 0600 03/18/19 07:00 CL Cardiac Catheterization [CL] Routine Date of Encounter: 03/18/19 Time of Encounter: 09:05 - Discharge Diagnosis (1) Unstable angina Priority: Primary Status: Acute (2) Abnormal stress test Priority: Primary Status: Acute (3) Systolic CHF, acute Priority: Secondary Status: Acute (4) Cardiomyopathy Priority: Secondary Status: Acute Qualifiers: Cardiomyopathy type: unspecified Qualified Code(s): I42.9 - Cardiomyopathy, unspecified (5) Diabetes Priority: Secondary Status: Acute Qualifiers: Diabetes mellitus type: type 2 Diabetes mellitus half-way insulin use: without long term care phlebotomist use Diabetes mellitus complication status: without complication Qualified Code(s): E11.9 - Type 2 diabetes mellitus without complications (6) Hypertension Priority: Secondary Status: Acute Qualifiers: Hypertension type: essential hypertension Qualified Code(s): I10 - Essential (primary) hypertension (7) Tobacco dependence Priority: Secondary Status: Acute Hospital course: Mr. Simms is a 58-year-old male with history of hypertension, HLD, diabetes and chronic tobacco dependence pt presented to ER with chest pain. He described the pain as constant throbbing pain in the left side of his chest was no radiation no alleviating factors or aggravating factors. He denied diaphoresis, shortness of breath, orthopnea, or limitation. In the ER the patient was treated with aspirin and nitroglycerin and that he is pain significantly improved. He was admitted in the hospital and placed him on shelter monitor. His his serial troponin came back as negative. He did go for nuclear stress test which came back as abnormal and showed cardiomyopathy. His 2-D Echo showed LVEF 45%. Patient was involved for by [facility], who did C today which showed mild CAD, recommend medical management and risk factor modification. Pt was started on ASA and Lisinopril..continued home dose of Lipitor. Unable to start him on BB since his HR already running in high 50's and low 60's. - Time Spent with Patient Total time spent providing and/or coordinating discharge services: - Discharge Medications Prescriptions: New Aspirin Enteric Coated [Aspirin EC] 81 mg PO DAILY #30 tablet.dr Mcdonald Ammonium Lactate [Amlactin] 1 appl TP BID PRN PRN Reason: Dry Skin Potassium Chloride [K-Tab ER] 20 meq PO BID Metformin HCl [Glucophage] 1,000 mg PO QAM Melatonin 3 mg PO HS Loratadine [Allergy Relief] 10 mg PO DAILY Docusate [Colace] 100 mg PO BID PRN PRN Reason: Constipation Cholecalciferol (Vitamin D3) [Children's Vitamin D3] 1,000 unit PO DAILY Chlorthalidone 25 mg PO DAILY Bupropion HCl [Wellbutrin Xl] 300 mg PO DAILY Atorvastatin Calcium [Lipitor] 20 mg PO DAILY Amlodipine Besylate 10 mg PO DAILY Terbinafine HCl [Lamisil At] 1 appl TP BID cloNIDine HCl [CloNIDine HCl] 0.2 mg PO BID PRN PRN Reason: See Comments Diclofenac Sodium [Voltaren] 2 gm TP DAILY PRN MDD 16 gm daily PRN Reason: joint pain Metformin HCl [Glucophage] 500 mg PO QPM Multivitamin [One Daily Multivitamin] 1 tab PO DAILY Home Medications: Amlodipine Besylate 10 mg PO DAILY 03/16/19 [History] Ammonium Lactate [Amlactin] 1 appl TP BID PRN 03/16/19 [History] Atorvastatin Calcium [Lipitor] 20 mg PO DAILY 03/16/19 [History] Bupropion HCl [Wellbutrin Xl] 300 mg PO DAILY 03/16/19 [History] Chlorthalidone 25 mg PO DAILY 03/16/19 [History] Cholecalciferol (Vitamin D3) [Children's Vitamin D3] 1,000 unit PO DAILY 03/16/19 [History] Diclofenac Sodium [Voltaren] 2 gm TP DAILY PRN MDD 16 gm daily 03/16/19 [History] Docusate [Colace] 100 mg PO BID PRN 03/16/19 [History] Loratadine [Allergy Relief] 10 mg PO DAILY 03/16/19 [History] Melatonin 3 mg PO HS 03/16/19 [History] Metformin HCl [Glucophage] 1,000 mg PO QAM 03/16/19 [History] Metformin HCl [Glucophage] 500 mg PO QPM 03/16/19 [History] Multivitamin [One Daily Multivitamin] 1 tab PO DAILY 03/16/19 [History] Potassium Chloride [K-Tab ER] 20 meq PO BID 03/16/19 [History] Terbinafine HCl [Lamisil At] 1 appl TP BID 03/16/19 [History] cloNIDine HCl [CloNIDine HCl] 0.2 mg PO BID PRN 03/16/19 [History] Aspirin Enteric Coated [Aspirin EC] 81 mg PO DAILY #30 tablet. 03/18/19 [Rx] Lisinopril [Zestril] 10 mg PO DAILY #30 tablet 03/18/19 [Rx] Allergies/Adverse Reactions: Allergy/AdvReac Type Severity Reaction Status Date / Time No Known Allergies Allergy Verified 03/16/19 06:32 Date of admission: 03/16/19 08:14 Primary care physician: PCP NONE Consults: 03/16/19 10:27 Consult to Central Services Tech [CONS] Routine Reason for SW Consult: or mental health 03/17/19 10:20 Consult to Cardiology [CONS] Routine Comment: Consulting Provider: [facility] Reason for Consult: Abnormal stress test.. Possible systolic CHF too Time Notified: 10:22 Call Completed: Yes - Constitutional Vitals: Temp Pulse Resp BP Pulse Ox 97.5 F L 59 16 167/98 95 03/18/19 06:50 03/18/19 06:50 03/18/19 06:50 03/18/19 06:50 03/18/19 06:50 General appearance: Present: A&O X 3 Exam: Gen: Alert, awake, Oriented to time,place and person Chest: Diminished breath sounds B/L, No wheezing, No crackles, No rales Heart: S1S2+ RRR No murmurs Abd: Soft, NT, BS +, No organomegaly Ext: No edema, pulses are palpable, No calf tenderness Neuro : No acute focal neuro deficits noticed Skin: No rash. - Patient Status Disposition: Transfer Other Condition: Good Overall status at discharge: patient is back to baseline - Discharge Instructions Follow Up With: HIRAL,PCP [Non-Partnered Physician] - 04/06/19 1:30 pm Forms: ED Satisfaction Letter - Diet and Activity Activity: increase activity as tolerated Diet: low salt diet
[2019-03-18] MEDS: Cholecalciferol (D-3) 1,000 UNIT TABLET PO SCH (09:32)
[2019-03-18] MEDS: amLODIPine 5 MG TABLET PO SCH (09:32)
[2019-03-18] MEDS: Multivit/Ca/Min/Fe/FA 1 TAB TABLET PO SCH (09:32)
[2019-03-18] MEDS: BuPROPion XL (24 HR) 150 MG TABLET PO SCH (09:33)
[2019-03-18] MEDS: Clotrimazole 1% CRM 15 GM TUBE TP SCH (09:33)
[2019-03-18] MEDS: Loratadine 10 MG TABLET PO SCH (09:33)
[2019-03-18 11:09] VITALS: BP 161/94
== END 2019-03-18 12:06 | disposition other institution (70) ==
LOC: EMEROOARM 06:25 → 3BNU 06:25 → SUATTDRO 08:14 → 3BNU 09:55
PROVIDERS: ADMIT Internal Medicine Nephrology; ATTEND Family Medicine